=== PATIENT | male | born 2000 | race Caucasian/White ===

== ENCOUNTER 2024-03-20 22:14 | Inpatient (IN) ==
[2024-03-20 23:49] LABS: Appearance Urine Clear (Clear); Bacteria Urine Automated None Seen (None Seen); Bilirubin Urine Negative (Negative); Blood Urine Negative (Negative); Cast Urine Automated 0-2 /lpf (0-2); Color Urine Yellow; Epithelial Cell Urine Auto 0-2 /hpf (0-2); Glucose Urine UA Negative (Negative); Ketones Urine Trace (Negative); Leukocyte Esterase Urine Trace (Negative); Nitrite Urine Negative (Negative); Protein Urine Negative (Negative); RBC Urine Automated 0-2 /hpf (0-2); Specific Gravity Urine 1.014 (1.000-1.030); Urobilinogen Urine Negative (Negative); WBC Urine Automated 0-5 /hpf (0-5); pH Urine 7.5 (4.5-7.5)
[2024-03-21 00:05] LABS: Amphetamines+Metham, Urine Neg (Neg); Barbiturates, Urine Neg (Neg); Benzodiazepine, Urine Neg (Neg); Cocaine, Urine Neg (Neg); Fentanyl, Urine Neg (Neg); MDMA (Ecstacy), Urine Neg (Neg); Marijuana, Urine Neg (Neg); Methadone, Urine Neg (Neg); Opiate, Urine Neg (Neg); Phencyclidine, Urine Neg (Neg)
[2024-03-21 00:06] LABS: Acetaminophen < 3 ug/ml (10-30); Est GFR (African American) 145.8 ml/min; Potassium 3.7 mmol/L (3.5-5.1); Salicylate < 3.0 mg/dl (3.0-30)
[2024-03-21 00:07] LABS: Albumin Globulin Ratio 1.6 (0.9-2); Albumin Level 4.9 gm/dl (3.4-5.0); BUN Creatinine Ratio 14.5 (10-20); Basophils # (auto) 0.03 K/uL (0.00-0.20); Basophils % (auto) 0.3 %; Bilirubin,Total 0.5 mg/dl (0.2-1.0); Calcium 9.8 mg/dl (8.6-10.3); Creatinine Clr Calc Pharmacy 187.8 ml/min; Eosinophils # (auto) 0.17 K/uL (0.00-0.50); Eosinophils % (auto) 1.8 %; Est GFR (Non-African American) 125.8 ml/min; Globulin 3.1 gm/dl (2.5-4.0); Hematocrit (blood only) 41.6 % (42.0-52.0); Hemoglobin 14.5 g/dl (14.0-18.0); Immature Granulocytes # (auto) 0.02 K/uL (0.01-0.20); Immature Granulocytes % (auto) 0.2 %; Lymphocytes % (auto) 20.3 %; Mean Corpuscular Hemoglobin 30.3 pg (25.0-34.0); Mean Corpuscular Hgb Conc 34.9 g/dL (32.0-36.0); Mean Corpuscular Volume 86.8 fL (80.0-100.0); Mean Platelet Volume 9.9 fL (9.4-12.4); Monocytes # (auto) 0.77 K/uL (0.11-0.59); Monocytes % (auto) 8.2 %; Neutrophils # (auto) 6.49 K/uL (1.40-6.50); Neutrophils % (auto) 69.2 %; Platelet Count 245 K/uL (130-400); RDW Coefficient of Variation 12.2 % (11.5-14.5); RDW Standard Deviation 38.8 fL (36.4-46.3); Red Blood Count 4.79 M/uL (4.70-6.10); White Blood Count 9.38 K/ul (4.8-10.8)
--- NOTE | 2024-03-21 00:13 | Emergency Department Note ---
History of Present Illness General Chief complaint: Mental Health Evaluation Stated complaint: 201 Time Seen by Provider: 03/20/24 22:22 History of Present Illness Provider complaint: Suicidal ideation mental health evaluation Maximum Pain Intensity: 3 23-year-old male presents emergency department for suicidal ideation mental health evaluation. Patient states he is depressed about a recent break-up. Patient states he has plan to kill himself by shooting himself in the head. Patient states he had a gun to his head earlier tonight. No drugs. Patient does report any alcohol. No attempt to overdose. Home Medications Medication Instructions Recorded Confirmed Type No Known Home Medications 03/20/24 03/20/24 History Allergies Allergy/AdvReac Type Severity Reaction Status Date / Time No Known Allergies Allergy Unverified 03/20/24 23:30 Past Med/Surg History Problem List (Updated 03/21/24 @ 01:33 by Rivas Cosby MD) Depression with suicidal ideation (Acute) Medical History (Updated 03/21/24 @ 01:33 by Rivas Cosby MD) No pertinent family history Depression ADHD Surgical History (Updated 03/21/24 @ 00:10 by Rivas Cosby MD) No pertinent past surgical history Social History Smoking Status: Current every day smoker Tobacco Type: Cigars Preferred Language: Amharic Feels Safe at Home: Yes Gender Identity: Male Physical Exam Vital Signs Vital Signs - 24 hr 03/20/24 22:19 Temperature 36.5 C Temperature Source Oral Pulse Rate 95 H Respiratory Rate 18 Blood Pressure 130/75 Blood Pressure Mean 93 Pulse Oximetry 96 Oxygen Delivery Method Room Air Sepsis Recent Fever Within 48 Hours No Sepsis New/Unexplained Change in Mental Status No Sepsis Action Taken by Nursing No Action Required Physical Exam HENT: Exam performed. - Head: Normocephalic and atraumatic. EYES: Conjunctivae and EOM are normal. Right eye exhibits no discharge. Left eye exhibits no discharge. No scleral icterus. NECK: Normal range of motion. Neck supple. No JVD present. CV: Normal rate, regular rhythm, normal heart sounds and intact distal pulses. There is no peripheral edema. Palpable radial pulses bue. PULM/CHEST: Effort normal and breath sounds normal. No respiratory distress. No stridor. no wheezes. no rales. ABD: The abdomen is soft. There is no tenderness. NEURO: Motor and sensation grossly intact. SKIN: Skin is warm and dry. He is not diaphoretic. PSYCH: Patient is tearful and suicidal ideation. Course Course 2221: The patient was evaluated in room A6. A complete history and physical exam was performed 0011: Patient medically cleared. Awaiting psychiatric evaluation and placement. 0132: Awaiting psychiatric evaluation and placement. Case signed out to Dr. Ocasio Medical Decision Making Medical Records Attestation: I reviewed the patient's medical records. External medical records reviewed. Patient was seen in the emergency department yesterday and cleared for discharge with outpatient psych follow-up. Laboratory Data Attestation: I reviewed the patient's lab results. 03/20/24 22:44 03/20/24 22:44 Lab Results 03/20/24 03/20/24 03/20/24 Range/Units 22:25 22:44 23:30 WBC 9.38 (4.8-10.8) K/ul RBC 4.79 (4.70-6.10) M/uL Hgb 14.5 (14.0-18.0) g/dl Hct 41.6 L (42.0-52.0) % MCV 86.8 (80.0-100.0) fL MCH 30.3 (25.0-34.0) pg MCHC 34.9 (32.0-36.0) g/dL RDW Std Deviation 38.8 (36.4-46.3) fL RDW Coeff of Alex 12.2 (11.5-14.5) % Plt Count 245 (130-400) K/uL MPV 9.9 (9.4-12.4) fL Immature Gran % (Auto) 0.2 % Neut % (Auto) 69.2 % Lymph % (Auto) 20.3 % [place] % (Auto) 8.2 % Eos % (Auto) 1.8 % Baso % (Auto) 0.3 % Neut # (Auto) 6.49 (1.40-6.50) K/uL Lymph # (Auto) 1.90 (1.20-3.40) K/uL [place] # (Auto) 0.77 H (0.11-0.59) K/uL Eos # (Auto) 0.17 (0.00-0.50) K/uL Baso # (Auto) 0.03 (0.00-0.20) K/uL Immature Gran # (Auto) 0.02 (0.01-0.20) K/uL Sodium 140 (136-145) mmol/L Potassium 3.7 (3.5-5.1) mmol/L Chloride 106 (98-107) mmol/L Carbon Dioxide 25 (21-32) mmol/L Anion Gap 9 (3-11) BUN 12 (6-23) mg/dl Creatinine 0.83 (0.6-1.4) mg/dl Est Cr Clr Drug Dosing 187.8 ml/min Est GFR ( Amer) 145.8 ml/min Est GFR (Non-Af Amer) 125.8 ml/min BUN/Creatinine Ratio 14.5 (10-20) Glucose 84 (70-99(Fasting)) mg/dl Calcium 9.8 (8.6-10.3) mg/dl Total Bilirubin 0.5 (0.2-1.0) mg/dl AST 18 (13-39) U/L ALT 16 (7-52) U/L Alkaline Phosphatase 51 (34-104) U/L Total Protein 8.0 (6.0-8.3) gm/dl Albumin 4.9 (3.4-5.0) gm/dl Globulin 3.1 (2.5-4.0) gm/dl Albumin/Globulin Ratio 1.6 (0.9-2) TSH 3.182 (0.300-4.500) uIu/ml Urine Color Yellow Urine Appearance Clear (Clear) Urine pH 7.5 (4.5-7.5) Ur Specific [place] 1.014 (1.000-1.030) Urine Protein Negative (Negative) Urine Glucose (UA) Negative (Negative) Urine Ketones Trace H (Negative) Urine Blood Negative (Negative) Urine Nitrite Negative (Negative) Urine Bilirubin Negative (Negative) Urine Urobilinogen Negative (Negative) Ur Leukocyte Esterase Trace H (Negative) Urine WBC (Auto) 0-5 (0-5) /hpf Urine RBC (Auto) 0-2 (0-2) /hpf U Hyaline Cast (Auto) 0-2 (0-2) /lpf U Epithel Cells (Auto) 0-2 (0-2) /hpf Urine Bacteria (Auto) None Seen (None Seen) Salicylates < 3.0 L (3.0-30) mg/dl Urine Opiates Screen Neg (Neg) Ur Methadone, Qual Neg (Neg) Urine Fentanyl Screen Neg (Neg) Acetaminophen < 3 L (10-30) ug/ml Urine Barbiturates Neg (Neg) Ur Phencyclidine (PCP) Neg (Neg) U Amphetamin/Meth Scrn Neg (Neg) MDMA (Ecstasy) Screen Neg (Neg) U Benzodiazepines Scrn Neg (Neg) Ur Cocaine Metabolite Neg (Neg) U Marijuana (THC) Screen Neg (Neg) Ethyl Alcohol mg/dL 20.9 H (<10.0) mg/dl SARS-CoV-2, RNA, NAAT NEGATIVE (NEGATIVE) MDM Narrative 2222: The patient was evaluated in room A6. A complete history and physical exam was performed 0011: Patient medically cleared. Awaiting psychiatric evaluation and placement. 0132: Awaiting psychiatric evaluation and placement. Case signed out to Dr. Ocasio Impression & Plan Depression with suicidal ideation Discharge Plan Visit Data Chief Complaint: Mental Health Evaluation Stated Complaint: 201 ED Provider: Rivas Cosby Discharge Problem: Depression with suicidal ideation Patient Disposition: Still a Patient Forms Stand Alone Forms: [facility], Suicide Prevention Resources Prescriptions Prescriptions: No Action No Known Home Medications Referrals Referrals: PCP,NO [Primary Care Provider] -
[2024-03-21 00:22] LABS: Thyroid Stimulating Hormone 3.182 uIu/ml (0.300-4.500)
--- NOTE | 2024-03-21 01:28 | Emergency Department Note ---
ED Visit Note This patient was signed out to me at shift change by Dr. Cosby. The patient had suicidal ideations and is voluntarily. Has been medically cleared. 3 S. came and evaluated him. They are going to admit the patient voluntarily for further inpatient treatment and evaluation. .
[2024-03-21] MEDS ORDERED: ACETAMINOPHEN 325 MG TAB PO PRN (03:46)
[2024-03-21] MEDS ORDERED: ALUMINUM/MAGNESIUM SUSP 30 ML UDC PO PRN (03:46)
[2024-03-21] MEDS ORDERED: MAGNESIUM HYDROXIDE SUSP 30 ML UDC PO PRN (03:46)
[2024-03-21] MEDS ORDERED: SODIUM CHLORIDE 0.65% NA SOLN 45 ML (OCEAN) PRN (03:46)
[2024-03-21] MEDS ORDERED: BISMUTH SUBSALICYLATE LIQD 236 ML PO PRN (03:46)
[2024-03-21] MEDS: NICOTINE POLACRILEX 2 MG GUM MT PRN (08:56)
[2024-03-21] MEDS: SERTRALINE HCL 50 MG TABLET PO SCH (12:28)
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
[2024-03-21] MEDS: hydrOXYzine HCl 25 MG TAB PO PRN (20:42)
[2024-03-22] MEDS: COUGH DROP (SUGAR FREE) LOZ 24 LOZ/1 BOX BUCCAL PRN (15:32)
--- NOTE | 2024-03-22 15:33 | Psychiatric Progress Note ---
Date of Service March 22, 2024 Impression / Recommendations Impression EMMA WINSTON is a 23-year-old M who currently lives with roommate, h/o childhood ADHD, and was admitted on 03/21/24 03:05 on a 201 voluntary commitment for suicidal ideation with gesture. Diagnosis consistent with borderline personality disorder. Patient continues to be distressed about recent relationship stressor and presents intense feelings about short term relationship. Counseled about automatic thoughts and CBT cycle and impact on perception of reality. Tolerating sertraline well with no noted s/e; plan to continue. Overall, I spent a total of 45 minutes with this case including review of chart records, nursing report, direct evaluation of the patient at bedside, counseling the patient, multidisciplinary team meeting, orders, and documentation in the electronic health record. (1) Borderline personality disorder: (2) Alcohol abuse: (3) H/O attention deficit hyperactivity disorder: Plan 03/22/2024: Menthol throat lozenge PRN started. 03/21/2024:The patient was admitted to the [facility] ([facility] unit) on q15 min checks (behavioral with suicide precautions) for safety. The patient will participate in group, recreational, and milieu therapies and will be offered additional individual and family sessions as clinically appropriate. -Start Sertraline 50mg daily -Donald Borderline Personality Screener Inventory Assets Strengths: open to treatment, family support Needs: outpatient counseling, financial resources Suicide Risk Level Suicide Risk Level: Moderate (q15 min suicide checks) Risk Factors Assessment Male: Yes : Yes Do You Have Access To A Gun?: Yes (Has two guns (1 revolver and 1 shotgun). Shotgun is unsecured at home) Health Problems: No Mental Health Diagnoses: Yes Substance Use Disorders: No Previous Attempt: No Family History of Suicide: Yes Previous Psychiatric Hospitalization: No Hopelessness: Yes Protective Factors Assessment Uatsdin Beliefs: No : No Responsible for Young Children: No Employed: No Stable Relationships: Yes Supportive Family: Yes Good Rapport with Provider: Yes Absence of Any Risk Factors Above: No Interval History Identifying Information EMMA WINSTON is a 23-year-old M who currently lives with roommate, h/o childhood ADHD, and was admitted on 03/21/24 03:05 on a 201 voluntary commitment for suicidal ideation with gesture. Chief Complaint "still love her" Review of Systems Sleep Information Total Hours of Sleep: 1.5 Sleep Comments: admitted early in morning Meal Information Percent Meal Consumed - Breakfast: 75 Percent Meal Consumed - Lunch: 50 Percent Meal Consumed - Dinner: 100 Subjective Subjective Patient was seen & assessed and interval progress reviewed with treatment team nursing and social work Patient reports sleeping well last with PRN vistaril. Reports ongoing stress about break-up and continues to ruminate. Feels he is responsible and does not know how to live with out her. Counseled about CBT and thought cycle and reassured about future. Explored past childhood and patient reports parents at 10 yoa and remembers seeing his mother crying when she found out. Salma ed mostly with mother and saw Father on wednesdays. Denies notable trauma or neglect. Pt continues to appear dejected and distressed by the breakup and presents intense feelings about his 1 mo relationship. Denies SI. C/o throat pain and concerned a pill was stuck in his throat; reassured and encouraged use of throat lozenge PRN. Physical Exam Mental Examination appropriate appearance Appearance: Well Groomed Eye Contact: Maintains Eye Contact Motor Behavior: Unremarkable Speech: Normal Mood: Anxious and Sad Affect: Congruent and Constricted Thought Process: Intact Thought Content: Intact and Linear Hallucinations: None Insight: Poor Judgement: Poor Vital Signs (Past 24 Hours) Last Vital Signs Temp 36.5 C 03/21/24 05:31 Pulse 66 03/21/24 05:31 Resp 18 03/21/24 05:31 BP 117/78 03/21/24 05:31 Pulse Ox 99 03/21/24 05:31 O2 Del Method Room Air 03/21/24 05:31 Results & Data ([facility]) Current Inpatient Medications Current Inpatient Medications: Current Inpatient Medications Acetaminophen (Acetaminophen 325 Mg Tab) 650 mg PO Q4H PRN PRN Reason: Headache or Minor Fever Stop: 04/20/24 03:45 Al Hydrox/Mg Hydrox/Simethicone (Aluminum/Magnesium Susp 30 Ml Udc) 30 ml PO Q4H PRN PRN Reason: GI Upset Stop: 04/20/24 03:45 Bismuth Subsalicylate (Bismuth Subsalicylate Liqd 236 Ml) 15 ml PO PRN PRN PRN Reason: Loose Stool Stop: 04/20/24 03:45 Hydroxyzine HCl (Hydroxyzine Hcl 25 Mg Tab) 50 mg PO HSZ PRN PRN Reason: Insomnia Stop: 04/20/24 03:45 Last Admin: 03/21/24 20:42 Dose: 50 mg Hydroxyzine HCl (Hydroxyzine Hcl 25 Mg Tab) 25 mg PO Q4H PRN PRN Reason: Anxiety Stop: 04/20/24 03:45 Magnesium Hydroxide (Magnesium Hydroxide Susp 30 Ml Udc) 30 ml PO DAILY PRN PRN Reason: Constipation Stop: 04/20/24 03:45 Menthol (Cough Drop (Sugar Free) Florecita 24 Florecita/1 Box) 1 florecita BUCCAL Q2H PRN PRN Reason: Sore Throat Stop: 04/21/24 12:44 Nicotine Polacrilex (Nicotine Polacrilex 2 Mg Gum) 1 piece MT PRN PRN PRN Reason: Nicotine Withdrawal Symptoms Stop: 04/20/24 04:07 Last Admin: 03/21/24 13:55 Dose: 1 piece Sertraline HCl (Sertraline Hcl 50 Mg Tablet) 50 mg PO QAM GLADIS Stop: 04/20/24 12:14 Last Admin: 03/21/24 12:28 Dose: 50 mg Sodium Chloride (Sodium Chloride 0.65% Na Soln 45 Ml ([place])) 1 - 2 sprays NA PRN PRN PRN Reason: Nasal Dryness/Congestion Stop: 04/20/24 03:45 Mental Health & Subst Abuse Tx Therapist Name of Therapist: None Lithographer Helper Name of Lithographer Helper: None
--- NOTE | 2024-03-23 08:51 | Psychiatric Progress Note ---
Date of Service March 23, 2024 Impression / Recommendations Impression EMMA WINSTON is a 23-year-old M who currently lives with roommate, h/o childhood ADHD, and was admitted on 03/21/24 03:05 on a 201 voluntary commitment for suicidal ideation with gesture. Diagnosis consistent with borderline personality disorder and major depressive disorder. A: Mood starting to improve, still with SI. Tolerating sertraline. Reviewed Wellbutrin augmentation as future option. DC regarding alcohol use as periods of binge drinking in past but no legal/social/academic consequences from this, he is in contemplative stage of change, plans to reduce use. Overall, I spent a total of 40 minutes with this case including review of chart records, nursing report, direct evaluation of the patient at bedside, counseling the patient, multidisciplinary team meeting, orders, and documentation in the electronic health record. (1) Borderline personality disorder: (2) H/O attention deficit hyperactivity disorder: (3) Major depressive disorder with current active episode: Plan 03/22/2024: Menthol throat lozenge PRN started. 03/21/2024:The patient was admitted to the [facility] ([facility] mental health unit) on q15 min checks (behavioral with suicide precautions) for safety. The patient will participate in group, recreational, and milieu therapies and will be offered additional individual and family sessions as clinically appropriate. 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 Shotgun is unsecured at home) Health Problems: No Mental Health Diagnoses: Yes Substance Use Disorders: No Previous Attempt: No Family History of Suicide: Yes Previous Psychiatric Hospitalization: No Hopelessness: Yes Protective Factors Assessment Gnosticism Beliefs: No : No Responsible for Young Children: No Employed: No Stable Relationships: Yes Supportive Family: Yes Good Rapport with Provider: Yes Absence of Any Risk Factors Above: No Interval History Identifying Information EMMA WINSTON is a 23-year-old M who currently lives with roommate, h/o childhood ADHD, and was admitted on 03/21/24 03:05 on a 201 voluntary commitment for suicidal ideation with gesture. Chief Complaint "alright". Review of Systems Sleep Information Total Hours of Sleep: 6.30 Sleep Comments: admitted early in morning Meal Information Percent Meal Consumed - Breakfast: 75 Percent Meal Consumed - Lunch: 50 Percent Meal Consumed - Dinner: 100 Subjective Subjective Patient was seen & assessed and interval progress reviewed with treatment team nursing and social work. Attending more groups. Feels his mood is starting to improve. Finding box breathing helpful he feels overwhelmed by emotions. Ongoing SI but lessening. Reviewed ADHD medication options given his history of ADHD diagnosed in adolescence. He prefers to continue with sertraline monotherapy for now. Physical Exam Psychiatric Orientation: alert and oriented x 3 Apperance: appropriately dressed Eye Contact: good eye contact Motor Behavior: no abnormal motor movements Speech: normal rate/rhythm/volume of speech Affect: + constricted affect Mood: + depressed mood and + anxious mood Thought Process: + circumstantial thought process Thought Content: reality based without delusions Suicidal Thoughts: denies suicidal plan; + reports suicidal thoughts Homicidal Thoughts: denies homicidal thoughts Hallucinations: no auditory hallucinations and no visual hallucinations Insight: + fair insight Judgment: + fair judgement Vital Signs (Past 24 Hours) Last Vital Signs Temp 36.4 C 03/23/24 06:50 Pulse 81 03/23/24 06:50 Resp 18 03/23/24 06:50 BP 120/69 03/23/24 06:50 Pulse Ox 100 03/23/24 06:50 O2 Del Method Room Air 03/23/24 06:50 Results & Data ([facility]) Current Inpatient Medications Current Inpatient Medications: Current Inpatient Medications Acetaminophen (Acetaminophen 325 Mg Tab) 650 mg PO Q4H PRN PRN Reason: Headache or Minor Fever Stop: 04/20/24 03:45 Al Hydrox/Mg Hydrox/Simethicone (Aluminum/Magnesium Susp 30 Ml Udc) 30 ml PO Q4H PRN PRN Reason: GI Upset Stop: 04/20/24 03:45 Bismuth Subsalicylate (Bismuth Subsalicylate Liqd 236 Ml) 15 ml PO PRN PRN PRN Reason: Loose Stool Stop: 04/20/24 03:45 Hydroxyzine HCl (Hydroxyzine Hcl 25 Mg Tab) 50 mg PO HSZ PRN PRN Reason: Insomnia Stop: 04/20/24 03:45 Last Admin: 03/21/24 20:42 Dose: 50 mg Hydroxyzine HCl (Hydroxyzine Hcl 25 Mg Tab) 25 mg PO Q4H PRN PRN Reason: Anxiety Stop: 04/20/24 03:45 Magnesium Hydroxide (Magnesium Hydroxide Susp 30 Ml Udc) 30 ml PO DAILY PRN PRN Reason: Constipation Stop: 04/20/24 03:45 Menthol (Cough Drop (Sugar Free) Florecita 24 Florecita/1 Box) 1 florecita BUCCAL Q2H PRN PRN Reason: Sore Throat Stop: 04/21/24 12:44 Last Admin: 03/22/24 15:32 Dose: 1 florecita Nicotine Polacrilex (Nicotine Polacrilex 2 Mg Gum) 1 piece MT PRN PRN PRN Reason: Nicotine Withdrawal Symptoms Stop: 04/20/24 04:07 Last Admin: 03/21/24 13:55 Dose: 1 piece Sertraline HCl (Sertraline Hcl 50 Mg Tablet) 50 mg PO QAM GLADIS Stop: 04/20/24 12:14 Last Admin: 03/23/24 08:29 Dose: 50 mg Sodium Chloride (Sodium Chloride 0.65% Na Soln 45 Ml ([place])) 1 - 2 sprays NA PRN PRN PRN Reason: Nasal Dryness/Congestion Stop: 04/20/24 03:45 Mental Health & Subst Abuse Tx Therapist Name of Therapist: None Plating Stripper Name of Plating Stripper: None
[2024-03-23] MEDS: hydrOXYzine HCl 25 MG TAB PO PRN (20:21)
--- NOTE | 2024-03-24 09:07 | Psychiatric Progress Note ---
Date of Service March 24, 2024 Impression / Recommendations Impression EMMA WINSTON is a 23-year-old M who currently lives with roommate, h/o childhood ADHD, and was admitted on 03/21/24 03:05 on a 201 voluntary commitment for suicidal ideation with gesture. Diagnosis consistent with borderline personality disorder and major depressive disorder. A: Mood improving, denies SI. Still sad and with some regret at times when he thinks back on the breakup and his actions afterwards. Motivational interviewing regarding his alcohol use, he plans to avoid use after discharge given disinhibition can increase risk of suicide. He is thinking about his future and willing to try [facility] to build more coping skills to cope with mood symptoms. Overall, I spent a total of 30 minutes with this case including review of chart records, nursing report, direct evaluation of the patient at bedside, counseling the patient, multidisciplinary team meeting, orders, and documentation in the electronic health record. (1) Major depressive disorder with current active episode: (2) Borderline personality disorder: (3) H/O attention deficit hyperactivity disorder: Plan 03/24/2024: Continue current medications and tx plan. Needs family meeting. Disposition planning. 03/23/2024: Continue current medications and tx plan 03/22/2024: Menthol throat lozenge PRN started. 03/21/2024:The patient was admitted to the [facility] ([facility] unit) on q15 min checks (behavioral with suicide precautions) for safety. The patient will participate in group, recreational, and milieu therapies and will be offered additional individual and family sessions as clinically appropriate. 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 Shotgun is unsecured at home) Health Problems: No Mental Health Diagnoses: Yes Substance Use Disorders: No Previous Attempt: No Family History of Suicide: Yes Previous Psychiatric Hospitalization: No Hopelessness: Yes Protective Factors Assessment Advent Beliefs: No : No Responsible for Young Children: No Employed: No Stable Relationships: Yes Supportive Family: Yes Good Rapport with Provider: Yes Absence of Any Risk Factors Above: No Interval History Identifying Information EMMA WINSTON is a 23-year-old M who currently lives with roommate, h/o childhood ADHD, and was admitted on 03/21/24 03:05 on a 201 voluntary commitment for suicidal ideation with gesture. Chief Complaint "alright". Review of Systems Sleep Information Total Hours of Sleep: 8 Sleep Comments: PRN Vistaril 25mg at 2120 Meal Information Percent Meal Consumed - Breakfast: 100 Percent Meal Consumed - Lunch: 100 Percent Meal Consumed - Dinner: 100 Subjective Subjective Patient was seen & assessed and interval progress reviewed with treatment team nursing and social work. Crying last evening, feels guilty and regretful of how he handled the breakup and response of his near suicide attempt. Recieved prn Vistaril which he found helpful. Today reports his mood is alright. Struggles at times with feeling "general dread and regret" when he thinks back to the breakup and near suicide attempt but denies any thoughts of suicide even in the context of feeling upset last night. Reviewed ways to cope with ruminative thoughts about his ex-girlfriend. Denies any medication side effects. Plans to avoid any alcohol use after discharge at least until his mood improves. Physical Exam Psychiatric Orientation: alert and oriented x 3 Apperance: appropriately dressed Eye Contact: good eye contact Motor Behavior: no abnormal motor movements Speech: normal rate/rhythm/volume of speech Affect: + constricted affect Mood: + depressed mood and + anxious mood Thought Process: goal directed thought process Thought Content: reality based without delusions Suicidal Thoughts: denies suicidal thoughts and denies suicidal plan Homicidal Thoughts: denies homicidal thoughts Hallucinations: no auditory hallucinations and no visual hallucinations Insight: + fair insight Judgment: + fair judgement Vital Signs (Past 24 Hours) Last Vital Signs Temp 36.6 C 03/24/24 06:42 Pulse 69 03/24/24 06:42 Resp 16 03/24/24 06:42 BP 120/69 03/23/24 06:50 Pulse Ox 100 03/24/24 06:42 O2 Del Method Room Air 03/24/24 06:42 Results & Data ([facility]) Current Inpatient Medications Current Inpatient Medications: Current Inpatient Medications Acetaminophen (Acetaminophen 325 Mg Tab) 650 mg PO Q4H PRN PRN Reason: Headache or Minor Fever Stop: 04/20/24 03:45 Al Hydrox/Mg Hydrox/Simethicone (Aluminum/Magnesium Susp 30 Ml Udc) 30 ml PO Q4H PRN PRN Reason: GI Upset Stop: 04/20/24 03:45 Bismuth Subsalicylate (Bismuth Subsalicylate Liqd 236 Ml) 15 ml PO PRN PRN PRN Reason: Loose Stool Stop: 04/20/24 03:45 Hydroxyzine HCl (Hydroxyzine Hcl 25 Mg Tab) 50 mg PO HSZ PRN PRN Reason: Insomnia Stop: 04/20/24 03:45 Last Admin: 03/21/24 20:42 Dose: 50 mg Hydroxyzine HCl (Hydroxyzine Hcl 25 Mg Tab) 25 mg PO Q4H PRN PRN Reason: Anxiety Stop: 04/20/24 03:45 Last Admin: 03/23/24 20:21 Dose: 25 mg Magnesium Hydroxide (Magnesium Hydroxide Susp 30 Ml Udc) 30 ml PO DAILY PRN PRN Reason: Constipation Stop: 04/20/24 03:45 Menthol (Cough Drop (Sugar Free) Florecita 24 Florecita/1 Box) 1 florecita BUCCAL Q2H PRN PRN Reason: Sore Throat Stop: 04/21/24 12:44 Last Admin: 03/22/24 15:32 Dose: 1 florecita Nicotine Polacrilex (Nicotine Polacrilex 2 Mg Gum) 1 piece MT PRN PRN PRN Reason: Nicotine Withdrawal Symptoms Stop: 04/20/24 04:07 Last Admin: 03/21/24 13:55 Dose: 1 piece Sertraline HCl (Sertraline Hcl 50 Mg Tablet) 50 mg PO QAM GLADIS Stop: 04/20/24 12:14 Last Admin: 03/24/24 08:35 Dose: 50 mg Sodium Chloride (Sodium Chloride 0.65% Na Soln 45 Ml ([place])) 1 - 2 sprays NA PRN PRN PRN Reason: Nasal Dryness/Congestion Stop: 04/20/24 03:45 Mental Health & Subst Abuse Tx Therapist Name of Therapist: None Recovery Specialist Name of Recovery Specialist: None
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
== END 2024-03-25 14:00 | disposition home or self-care (01) | DRG 881 ==
LOC: ED 22:14 → 3S 03-21 03:05 → SUATTDRO 03-21 03:05 → 3S 03-21 04:08